=== PATIENT | male | born 1930 | race Caucasian/White ===

== ENCOUNTER 2016-12-21 10:12 | Emergency (ER) | payer MEDICARE ==
[2013-03-25 13:44] VITALS: BMI 18.2
[~2016-12-21 10:12] MED LIST: ADVAIR 250/501 DISK; ADVAIR HFA [SP]12 GM INH; AUGMENTIN 500-11 TAB PO; BABY ASPIRIN81 MG PO; CLEOCIN HCL300 MG PO; COMBIVENT RESPIM4 GM INH; DIFLUCAN100 MG PO; LIPITOR10 MG PO; MUCINEX600 MG PO; NIFEDICAL30 MG/BOTT PO; NYSTATIN60 GM TP; STERAPRED DS 1210 MG; TEFLARO600 MG IV; ZESTRIL20 MG PO
[2016-12-21 16:24] LABS: BASOPHILS 0.2 % (0-2); EOSINOPHILS 1.2 % (0-7); HEMATOCRIT 38.9 % (42.0-54.0); HEMOGLOBIN 12.8 g/dL (13.5-17.5); IMMATURE GRANULOCYTES 0.2 % (0-5); MCHC 32.9 g/dL (31.0-37.0); MCV 88.2 fL (80.0-100.0); MEAN PLATELET VOLUME 10.7 fL (7.4-10.4); MONOCYTES 14.2 % (2-11); NEUTROPHILS 72.2 % (40-80); PLATELET COUNT 196 10x3/uL (130-400); RBC 4.41 10x6/uL (4.20-6.10); RDW 14.6 % (11.5-14.5); WBC 9.2 10x3/uL (4.8-10.8)
[2016-12-21 16:46] LABS: ALBUMIN 3.2 g/dL (3.4-5.0); ANION GAP 12.1 mmol/L (8-16); BILIRUBIN - TOTAL 0.98 mg/dL (0.2-1.3); CALCIUM 8.6 mg/dL (8.5-10.1); CARBON DIOXIDE 25.7 mmol/L (21.0-32.0); CREATININE - SERUM 1.1 mg/dL (0.6-1.3); POTASSIUM - SERUM 3.8 mmol/L (3.5-5.1); PROTEIN - SERUM 7.5 g/dL (6.4-8.2)
== END 2016-12-21 19:30 | disposition short-term general hospital (02) ==
LOC: D.ER 10:12
PROVIDERS: Emergency Medicine
DX: S30.0XXA Contusion of lower back and pelvis, initial encounter (principal); W19.XXXA Unspecified fall, initial encounter; S60.512A Abrasion of left hand, initial encounter; J44.9 Chronic obstructive pulmonary disease, unspecified; I10 Essential (primary) hypertension; F03.90 Unspecified dementia, unspecified severity, without behavioral disturbance, psychotic disturbance, mood disturbance, and anxiety; R53.1 Weakness